=== PATIENT | male | born 1995 | race American Indian/Alaskan Native ===

== ENCOUNTER 2017-10-10 17:27 | Emergency (ER) | payer OTHER ==
[2017-10-10 17:38] VITALS: BP 138/82
--- NOTE | 2017-10-10 18:26 | Emergency Department Report ---
Chief Complaint: Fall Stated Complaint: RIGHT HAND FINGER PAIN Time Seen by Provider: 10/10/17 18:00 - HPI History of Present Illness: Patient here reports that he fell 3 stories from a balcony around 3 AM yesterday. He reports that he didn't have any loss of consciousness but he was also drinking environmental sustainability manager. He is complaining of right leg pain and right hand and finger pain. Also complaining of pain to the back of his right head and a knot to back of right head. He has abrasions to his hand. Denies any nausea or vomiting. He said he climbed up a balcony because his friend was passed out. Denies any dizziness or blurred vision. - ROS Review of Systems: All systems are negative unless stated in HPI above - Exam Vital Signs: Vital Signs 10/10/17 17:33 Temperature 98.6 F Pulse Rate 78 Respiratory 18 Rate Blood Pressure 138/82 O2 Sat by Pulse 98 Oximetry Physical Exam: Gen: This is a 22-year-old male well-nourished well-developed in no acute distress. Head: Positive scalp contusion posterior right head. Mini neurological exam: Patient alert and oriented 3, GCS of 15, gait is normal. Speech is clear and no facial drooping. No motor or sensory deficit. Skin: Abrasions noted to right leg and right hand. Also bruised area to the right anterior chest wall Extremity: Abrasion with bruising and ecchymotic area to her extremities but no deformity noted. CV: S1, S2. Positive tenderness to palpation to right rib cage. No murmur. MSE screening note: Focused history and physical exam performed. Due to findings the following was ordered: ED Medical Decision Making - Medical Decision Making MDM: Patient screened by provider in triage area. Appropriate protocol initiated and patient to be seen in main ED by ED Disposition for MSE Condition: Stable
[2017-10-10] MEDS ORDERED: BOOSTRIX IM ONE (18:31)
[2017-10-10 19:35] LABS: Basophils % (Auto) 0.4 % (0.0-1.8); Eosinophils % (Auto) 0.9 % (0.0-4.3); Hematocrit 40.2 % (35.5-45.6); Hemoglobin 13.5 gm/dl (11.8-15.2); Mean Corpuscular HGB Conc 34 % (32-34); Mean Corpuscular Hemoglobin 30 pg (28-32); Mean Corpuscular Volume 90 fl (84-94); Platelet Count 223 K/mm3 (140-440); Red Blood Count 4.48 M/mm3 (3.65-5.03); Red Cell Distribution Width 14.8 % (13.2-15.2)
[2017-10-10 19:42] LABS: Alanine Aminotransferase 26 units/L (7-56); Albumin/Globulin Ratio 1.8 %; Alkaline Phosphatase 100 units/L (35-129); Anion Gap 21 mmol/L; BUN/Creatinine Ratio 11; Blood Urea Nitrogen 13 mg/dL (9-20); Carbon Dioxide 25 mmol/L (22-30); Chloride 100.3 mmol/L (98-107); Glucose 98 mg/dL (75-100); Potassium 4.3 mmol/L (3.6-5.0); Sodium 142 mmol/L (137-145); Total Protein 7.8 g/dL (6.3-8.2)
--- NOTE | 2017-10-10 20:47 | Cat Scan Report ---
FINAL REPORT PROCEDURE: CT head without contrast. TECHNIQUE: Computerized tomography of the head was performed without contrast material. HISTORY: Patient fell, head injury. COMPARISON: No prior studies are available for comparison. FINDINGS: The ventricles are normal in size. The borrego matter and white matter appear normal. There are no mass lesions. There is no intracranial hemorrhage. The calvarium appears intact. The mastoid air cells and visualized paranasal sinuses are well aerated. IMPRESSION: Normal study.
--- NOTE | 2017-10-10 20:51 | Cat Scan Report ---
FINAL REPORT PROCEDURE: CT CERVICAL SPINE WO CON TECHNIQUE: Computerized tomography of the cervical spine was performed from the skull base to T1 without contrast material. DLP 540.69 mGy-cm. HISTORY: Fall. COMPARISON: No prior studies are available for comparison. FINDINGS: C1-2: No significant abnormality. C2-3: No significant abnormality. C3-4: No significant abnormality. C4-5: No significant abnormality. C5-6: No significant abnormality. C6-7: No significant abnormality. C7-T1: No significant abnormality. Other: No additional findings. IMPRESSION: No CT evidence of acute cervical spine pathology. No CT evidence of cervical spine fracture
--- NOTE | 2017-10-10 20:58 | XRay Report ---
FINAL REPORT PROCEDURE: XR HAND 3+V RT TECHNIQUE: RIGHT hand radiographs, AP, lateral, and oblique views. CPT 84966-XR HISTORY: Fall with hand pain. COMPARISON: No prior studies are available for comparison. FINDINGS: Fracture (s) and/or Dislocation(s): None . Alignment: Normal . Joint space(s): Normal . Soft tissues: Normal . Bone mineralization: Normal . Foreign bodies: None . IMPRESSION: No radiographic evidence of displaced fracture.
--- NOTE | 2017-10-10 21:04 | XRay Report ---
FINAL REPORT PROCEDURE: XR TIBIA FIBULA 2V RT TECHNIQUE: RIGHT tibia and fibula radiographs, AP and lateral views. CPT 32574 HISTORY: Fall. COMPARISON: No prior studies are available for comparison. FINDINGS: Fracture (s) and/or Dislocation(s): None . Joint space(s): Normal . Soft tissues: Normal . Bone mineralization: Normal . Foreign bodies: None . IMPRESSION: No radiographic evidence of displaced fracture.
--- NOTE | 2017-10-10 21:13 | XRay Report ---
FINAL REPORT PROCEDURE: XR RIBS BILAT 2V TECHNIQUE: Bilateral rib radiographs, 2 views of the bilateral ribs. HISTORY: Fall. Rib pain. COMPARISON: Chest radiograph dated same day and time. FINDINGS: Lungs: Normal. Pleural space: Normal. Pneumothorax: None. Bony thorax/ribs: No significant abnormality. IMPRESSION: No radiographic evidence of displaced fracture.
--- NOTE | 2017-10-10 21:16 | XRay Report ---
FINAL REPORT PROCEDURE: XR CHEST ROUTINE 2V TECHNIQUE: PA and lateral chest radiographs were obtained. CPT 70013 HISTORY: Fall. Chest pain. COMPARISON: Rib series dated same day and time. FINDINGS: Heart: Normal. Mediastinum/Vessels: Normal. Lungs/Pleural space: Normal. Bony thorax: No acute osseous abnormality. Other: IMPRESSION: No radiographic evidence of acute cardiopulmonary disease.
== END 2017-10-10 21:05 | disposition left against medical advice (07) ==
LOC: ED 17:27
DX: M79.644 Pain in right finger(s) (principal); Z53.21 Procedure and treatment not carried out due to patient leaving prior to being seen by health care provider
CPT/HCPCS: 36415; 70450; 71020; 71110; 72125; 73130; 73590; 80053; 85025; 85730; 86850; 86900; 86901; G0480; 80320

== ENCOUNTER 2017-10-11 13:13 | Emergency (ER) | payer SELFPAY ==
--- NOTE | 2017-10-11 15:48 | Emergency Department Report ---
ED Fall HPI - General Chief Complaint: Fall Stated Complaint: RIGHT HAND FINGER PAIN Time Seen by Provider: 10/11/17 15:47 Source: patient Mode of arrival: Ambulatory - History of Present Illness Initial Comments: 22-year-old male past medical history none presents with complaint of multiple abrasions and right-sided hip pain knee pain and right hand pain status post fall. Patient states that he was intoxicated tried to climb a friend's balcony fell off the balcony to air conditioners on the way down and did not lose consciousness and suffered multiple abrasions. Patient states he feels significantly better than the ensuing hours after the fall. Still complaining of slight muscle aches. Denies chest pain palpitations shortness of breath nausea vomiting bleeding. Patient is fully lucid awake alert and oriented 3. tdap uptodate as of 2013. Complaint: fall Onset/Timin -: days(s) Fall From: other (3 stories) Fall Witnessed: no Place Fall Occurred: other (friends home) Loss of Consciousness: none Prolonged Down Time?: no Symptoms Prior to Fall: none Location - Extremities: Right: Knee Severity: moderate Severity scale (0 -10): 6 Quality: aching Context: alcohol use Associated Symptoms: denies - Related Data Previous Rx's Medication Instructions Recorded Last Taken Type Bacitracin Zinc Oint [Antibiotic 1 applicatio TP BID #1 tube 10/11/17 Unknown Rx Oint] Ibuprofen [Motrin] 600 mg PO Q8H PRN #30 tablet 10/11/17 Unknown Rx Allergies Allergy/AdvReac Type Severity Reaction Status Date / Time No Known Allergies Allergy Unverified 10/10/17 17:33 ED Review of Systems ROS: Stated complaint: RIGHT HAND FINGER PAIN Other details as noted in HPI Constitutional: denies: chills, fever Eyes: denies: eye pain, eye discharge, vision change ENT: denies: ear pain, throat pain Respiratory: denies: cough, shortness of breath, wheezing Cardiovascular: denies: chest pain, palpitations Endocrine: no symptoms reported Gastrointestinal: denies: abdominal pain, nausea, diarrhea Genitourinary: denies: urgency, dysuria Musculoskeletal: as per HPI, arthralgia. denies: back pain, joint swelling Skin: as per HPI, other. denies: rash, lesions Neurological: denies: headache, weakness, paresthesias Psychiatric: denies: anxiety, depression Hematological/Lymphatic: denies: easy bleeding, easy bruising ED Past Medical Hx - Past Medical History Previous Medical History?: No - Surgical History Past Surgical History?: No - Social History Smoking Status: Current Every Day Smoker Substance Use Type: None - Medications Home Medications: Home Medications Medication Instructions Recorded Confirmed Last Taken Type Bacitracin Zinc Oint [Antibiotic 1 applicatio TP BID #1 tube 10/11/17 Unknown Rx Oint] Ibuprofen [Motrin] 600 mg PO Q8H PRN #30 tablet 10/11/17 Unknown Rx ED Physical Exam - General Limitations: No Limitations General appearance: alert, in no apparent distress - Head Head exam: Present: atraumatic, normocephalic - Eye Eye exam: Present: normal appearance, PERRL, EOMI Pupils: Present: normal accommodation - ENT ENT exam: Present: normal exam, normal orophraynx, mucous membranes moist - Neck Neck exam: Present: normal inspection, full ROM - Respiratory Respiratory exam: Present: normal lung sounds bilaterally, other (no chest wall contusions). Absent: respiratory distress - Cardiovascular Cardiovascular Exam: Present: regular rate, normal rhythm. Absent: systolic murmur, diastolic murmur, rubs, gallop - GI/Abdominal GI/Abdominal exam: Present: soft (abdomen soft nontender nondistended 4 quadrants), normal bowel sounds - Rectal Rectal exam: Present: deferred - Extremities Exam Extremities exam: Present: normal inspection - Expanded Upper Extremity Exam Right Shoulder Exam: Present: normal inspection, full ROM Upper Arm exam: Present: normal inspection, full ROM Elbow exam: Present: normal inspection, full ROM Forearm Wrist exam: Present: normal inspection, full ROM Hand Wrist exam: Present: normal inspection, full ROM, abrasion (abrasion near thumb, no snuffbox tenderness) Neuro motor exam: Present: wrist extension intact, thumb opposition intact, thumb IP flexion intact, thumb adduction intact, fingers 2-5 abduction intact Neurosensory exam: Present: radial nerve intact, ulnar nerve intact, median nerve intact Vascular: Present: normal capillary refill - Expanded Lower Extremity Exam Right Hip exam: Present: normal inspection, full ROM, abrasion (abraisons right hip), external rotation, internal rotation Upper Leg exam: Present: normal inspection, full ROM Knee exam: Present: normal inspection, full ROM (knee flexion and extension intact), abrasion Lower Leg exam: Present: normal inspection, full ROM, abrasion (deep abrasion right upepr kahn) Ankle exam: Present: normal inspection, full ROM Foot/Toe exam: Present: normal inspection, full ROM Neuro vascular tendon exam: Present: no vascular compromise (dorsalis pedis and posterior tibial pulses intact) Gait: Positive: observed and normal 1 - abrasion here 2 - abrasion here - Back Exam Back exam: Present: normal inspection (no back wall ecchymosis, no midlien cervical throacic, lumbar spinal tenderness) - Neurological Exam Neurological exam: Present: alert, oriented X3, CN II-XII intact, normal gait - Expanded Neurological Exam Expanded Patient oriented to: Present: person, place, time Cranial nerves: EOM's Intact: Normal Cerebellar function: Finger to Nose: Normal, Heel to Kahn: Normal, Romberg: Normal Sensory exam: Upper Extremity Light Touch: Normal, Lower Extremity Light Touch: Normal Motor strength exam: RUE: 5, LUE: 5, RLE: 5, LLE: 5 Best Eye Response ([place]): (4) open spontaneously Best Motor Response ([place]): (6) obeys commands Best Verbal Response ([place]): (5) oriented [place] Total: 15 - Psychiatric Psychiatric exam: Present: normal affect, normal mood - Skin Skin exam: Present: warm, dry, intact, normal color. Absent: rash ED Course Vital Signs 10/11/17 10/11/17 13:37 17:31 Temperature 98 F 97.9 F Pulse Rate 78 60 Respiratory 20 18 Rate Blood Pressure 120/72 Blood Pressure 127/63 [Right] O2 Sat by Pulse 100 96 Oximetry ED Medical Decision Making - Medical Decision Making A/P: High fall, multiple abrasions, musculoskeletal pain 1-case discussed with Dr. Devi who also examined the patient 2-x-rays all negative, CT head and C-spine unremarkable. Range of motion intact all extremities. No clinical signs of compartment syndrome on clinical exam. Distal pulses and sensation fully intact on clinical exam 3-Motrin when necessary for pain. I advised the patient to remain well- hydrated. Triple antibiotic ointment to abrasions. Critical care attestation.: If time is entered above; I have spent that time in minutes in the direct care of this critically ill patient, excluding procedure time. ED Disposition Clinical Impression: Abrasions of multiple sites Fall with no significant injury Qualifiers: Encounter type: initial encounter Qualified Code(s): W19.XXXA - Unspecified fall, initial encounter Disposition: TO HOME OR SELFCARE Is pt being admited?: No Does the pt Need Aspirin: No Condition: Stable Instructions: Contusion in Adults (ED), Abrasion (ED), Musculoskeletal Pain (ED ) Prescriptions: Bacitracin Zinc Oint [Antibiotic Oint] 1 applicatio TP BID #1 tube Ibuprofen [Motrin] 600 mg PO Q8H PRN #30 tablet PRN Reason: Pain Referrals: [facility] [Outside] - 3-5 Days [facility] [Outside] - 3-5 Days Forms: Work/School Release Form(ED) Time of Disposition: 17:28
[2017-10-11] MEDS ORDERED: MOTRIN PO ONE (16:05)
[2017-10-11 17:32] VITALS: BP 127/63
--- NOTE | 2017-10-11 18:48 | XRay Report ---
FINAL REPORT PROCEDURE: XR KNEE 3V RT TECHNIQUE: RIGHT knee radiographs, AP, lateral and oblique views. CPT 29673 HISTORY: Fall off balcony 3 stories. Right knee pain. COMPARISON: No prior studies are available for comparison. FINDINGS: Fracture (s) and/or Dislocation(s): None . Alignment: Normal . Joint space(s): Normal . Soft tissues: Normal . Bone mineralization: Normal . Foreign bodies: None . IMPRESSION: No radiographic evidence of acute abnormality.
--- NOTE | 2017-10-11 21:50 | XRay Report ---
FINAL REPORT EXAM: XR HIP 2-3V RT HISTORY: s/p fall off balcony 3 stories TECHNIQUE: Right hip and AP pelvis PRIORS: None. FINDINGS: No fracture identified. No dislocation seen. Femoral head maintains a normal contour. Joint spaces within normal limits. Adjacent bony pelvis is unremarkable IMPRESSION: Negative hip series
== END 2017-10-11 17:57 | disposition home or self-care (01) ==
LOC: ED 13:13
DX: S80.211A Abrasion, right knee, initial encounter (principal); S70.211A Abrasion, right hip, initial encounter; S60.511A Abrasion of right hand, initial encounter; F17.200 Nicotine dependence, unspecified, uncomplicated; W13.0XXA Fall from, out of or through balcony, initial encounter; Y93.89 Activity, other specified; Y92.89 Other specified places as the place of occurrence of the external cause; Y99.8 Other external cause status
CPT/HCPCS: 99283